=== PATIENT | female | born 2000 | race Caucasian/White ===

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

== ENCOUNTER → 2022-01-27 12:37 | Outpatient (BNVA) | payer OTHER, BC, SELFPAY | PROVIDERS: PCP Nurse Practitioner Family; Visit Provider Nurse Practitioner Women's Health | DX: Z72.51 High risk heterosexual behavior (principal) | CPT/HCPCS: 84702; 86592; 86803; 87340; 87491; 87591; 87661; 87806 ==

== ENCOUNTER 2025-01-16 23:23 | Emergency (ER) | payer OTHER, SELFPAY ==
--- OUTSIDE RECORDS SUMMARY | 2023-09-30 12:23 | XMS_ITS | Continuity of Care Document ---
Author Organization [facility] Address [address] [place] [address] Phone Care Team Providers Care Rigging Helper Name Role Phone Aurora Franco PT Unavailable Unavailable Procedures Procedure Date Therapeutic Activities Neuromuscular Re-Ed Therapeutic Exercise Therapeutic Activities Therapeutic Exercise Neuromuscular Re-Ed Therapeutic Activities Neuromuscular Re-Ed Therapeutic Exercise Manual Therapy Therapeutic Activities Neuromuscular Re-Ed Therapeutic Exercise Hot or Cold Pack PT Evaluation Moderate Complexity Therapeutic Activities Therapeutic Exercise Advance Directives Directive Yes / No Effective Date File Name No Information Encounters Encounter Description Practice Location Reason(s) For Visit Diagnoses Date Provider Providers Copied on Encounter [facility] [address], [place], [place], [id number], tel:[phone] [facility] No Information Salvador Simon. . Referring Provider: Jasmyne Underwood W [facility] [address], [place], [address]. tel:[phone] [facility] [address], [place], [place], [id number], tel:[phone] [facility] No Information Desilets [place]. . Referring Provider: Vern Fatima [address] [address], [place], [address]. tel:[phone] [place] [address], [id number], tel:[phone] [facility] No Information Pelea Aurora. . Referring Provider: Vern Fatima, [address] [address], [place], [place], [facility]. tel:[phone] [place] [address], [id number], tel:[phone] [facility] No Information Snow Paul. . Referring Provider: Vern Fatima [address] [address], [place], [place], [facility]. tel:[phone], [id number], tel:[phone] [facility] No Information Pelea Aurora. . Referring Provider: Vern Fatima [address] [address], [place], [facility]. tel:[phone], [id number], tel:[phone] [facility] No Information Pelea Aurora. . Referring Provider: Vern Fatima [address] [address], [place], [place], [facility]. tel:[phone] Family History Family Member Type Diagnosis Age At Onset No Information Payers Payer name Insurance type Covered green party ID Authormilaa tisoheila(s) [facility] [id number] Social History Type Description Quantity Date Captured [...]
--- OUTSIDE RECORDS SUMMARY | 2023-12-16 09:00 | XMS_ITS | Continuity of Care Document ---
Author Organization [facility] Address [address] [place] [address] Phone Care Team Providers Care License Registration Examiner Name Role Phone Casey Parson Unavailable Unavailable Allergies, Adverse Reactions, Alerts Substance Reaction Status Criticality No Known Allergies Active No Inform ation Medications Medication Instructions Dosage Effective Dates (start - stop) Status Comments hydrocodone 5 mg-acetaminophen 325 mg tablet take 1 tablet by oral route every 6 hours as needed for pain 1.00 tablet - Active fluoxetine 10 mg capsule take 2 capsule by oral route every day 20 MG - Active NuvaRing 0.12 mg-0.015 mg/24 hr vaginal insert 1 vaginal ring by vaginal route every month leave in place for 3 weeks, remove for 1 week 1.00 vaginal ring - Active Problems Condition Type Effective Dates (start - stop) Clini meredith Status Comments No Known Problems Procedures Procedure Date OFFICE/OUTPATIENT VISIT, EST OFFICE/OUTPATIENT VISIT, EST Inj Methylprednisolone 1 mg DRAIN/INJ JOINT/BURSA W/US Postop Follow-Up Visit Inc [facility] Knee arthroscopy/meniscectomy, medial OR lat Knee arthroscopy/meniscectomy, medial OR lat OFFICE/OUTPATIENT VISIT, EST OFFICE/OUTPATIENT VISIT, NEW Xray Knee Dimitri And Lateral Views X-ray exam, both knees, standing 2023 Advance Directives Directive Yes / No Effective Date File Name No Information Encounters Encounter Description Practice Location Reason(s) For Visit Diagnoses Date Provider Providers Copied on Encounter OFFICE/OUTPAT IENT VISIT, [facility] [address], [place], [place], [id number], [place] tel:[phone] Bone And Joint Follow Up of right knee (chief complaint) Complex tear of lateral meniscus of right knee as current injury, subsequent encounter 4 Ryan Peña. [address], [address], [place], [place], [id number] , [place]. tel:[phone] Referring Provider: Vern Mason, [address], [place], [address]. tel:[phone] OFFICE/OUTPAT IENT VISIT, [facility] [address], [place], [place], [id number], [place] tel:[phone] Bone And Joint Follow Up of R knee (chief complaint) Complex tear of lateral meniscus of right knee as current injury, subsequent encounter 4 Ryan Peña. [address], [address], [place], [place], [address] , [place]. tel:[phone] Referring Provider: Casey Yost, [address], [place], [address] . tel:[phone] [facility] [address], [place], [place], [id number], [place] tel:[phone] Bone And Joint R knee (chief complaint) Status post arthroscopic knee surgeryComplex tear of lateral meniscus of right knee as current injury, subsequent encounterKnee joint cyst, right 4 Ryan Peña. [address], [address], [place], [place], [address] , [place]. tel:[phone] Referring Provider: Vern Mason, [address], [place], [address]. tel:[phone] [facility] [address], [place], [place], [id number], [place] tel:[phone] Bone And Joint Follow Up of PO (chief complaint) Knee joint cyst, rightOther tear of lateral meniscus, current injury, right knee, initial encounter 4 Ryan Peña. [address], [address], [place], [place], [address] , [place]. [phone] Referring Provider: Vern Mason, [address], [place], [address]. tel:[phone] [facility] [address], [place], [place], [id number], [place] tel:[phone] [facility] Complex tear of lat mensc, current injury, right knee, initOther specified joint disorders, right knee 4 Ryan Peña. [address], [address], [place], [place], [address] , [place]. [phone] Referring Provider: Vern Mason, [address], [place], [address]. tel:[phone] [facility] [address], [place], [place], [id number], [place] tel:[phone] [facility] Complex tear of lat mensc, current injury, right knee, init 4 Akua Porras. [address], [address], [place], [address], [place]. [phone] Referring Provider: Vern Mason, [address], [place], [address]. tel:[phone] [facility] [address], [place], [place], [id number], [place] tel:[phone] Bone And Joint No Information 4 Akua Porras. [address], [address], [place], [address], [place]. tel:[phone] OFFICE/OUTPAT IENT VISIT, [facility] [address], [place], [place], [address], [place] tel:[phone] Bone And Joint Follow Up of MRI R knee (chief complaint) Knee joint cyst, right Apr-3 4 Akua Porras. [address], [address], [place], [address], [place]. tel:[phone] Referring Provider: Vern Mason, [address] [place] [address] [address], [place], [address]. tel:[phone] OFFICE/OUTPAT IENT VISIT, [facility] [address], [place], [place], [id number], [place] tel:[phone] Bone And Joint right knee (chief complaint) Other tear of lateral meniscus, current injury, right knee, initial encounter Jun- 4 Akua Porras. [address], [address], [place], [address], [place]. tel:[phone] Referring Provider: Vern Mason, [address] [place] [address] [address], [place], [address]. tel:[phone] Family History Family Member Type Diagnosis Age At Onset No Information Payers Payer name Insurance type Covered libertarian ID Authorbuck page(s) [facility] [id number] CI [id number] Social History Type Description Quantity Date Captured [...] use screening . Due on due Goal Influenza vaccine. Due on due Goal HPV (). Due on due Goal Hepatitis C screening. [...] due Goal PAP. Due on due Goal Depression screening. Due on due Goal Colonoscopy. Due on due Goal Td vaccine. Due on due Goal FOBT. Due on due Goal CT-Colonography. Due on due Goal Hepatitis C screening. Due o n due Goal HPV (1st). Due on due Goal FIT-DNA. Due on due Goal FIT. Due on due Goal Dilated Eye Exam. Due on Sep due Goal Sigmoidoscopy. Due on due Goal PAP. Due on due Goal Unhealthy drug use screening . Due on due Goal Tdap. Due on due Goal Influenza vaccine. Due on due Goal FIT. Due on [...] due Goal FIT-DNA. Due on due Goal Hepatitis C screening. Due o n due Goal Fluoride varnish application . Due on due Goal Td vaccine. Due on due Goal Tdap. Due on due Goal FOBT. Due on due Goal Dilated Eye Exam. [...] Date Complaint History Of Prese nt Illness Comments: Pt pre sents to clinic today for a 4 week follow up of a right knee cortisone injection. Patient says the injection helped her out quite a bit. She still has some mild lateral knee pain, however. Follow Up of right knee Follow Up of R knee Comments: Pt [...] denies any locking, catching or giving way. Comments: 6 week f/u R knee arthroscopy, partial lateral meniscectomy, debridement ACL cyst. Pt says she was doing well, however, started PT and started increasing her symptoms, pain is primarily along lateral joint line and posterior knee. 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 R knee Comments: 1 week f/u R knee arthroscopy with partial lateral meniscectomy and debridement ACL cyst. Doing well. 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 Follow Up of PO Follow Up of MRI R knee Comments: Pt com es in for follow up post MRI R knee. She continues to have knee pain, difficulty with long standing running. 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 She initially injured herself 2 years ago while playing softball and tripped over first base. She was treated with NSAIDS and PT and subsequently with a corticosteroid injection. They talked about an MRI but never did. She continued to have pain , popping, difficulty working out. Functional Status Date Functional Assessmen t No [...] MD Related to Knee joint cyst, right Imaging or Surgery scheduled Rel ated to Knee joint cyst, right Risk/benefits of lady atment plan discussed with patient Related to Knee joint cyst, right Patient will follow up after surgery as post op check Related to Knee joint cyst, right Probable [...]
[2025-01-16 23:26] VITALS: BP 136/100; PULSE 111; RESP 20; TEMP 36.7; O2SAT 94; BMI 21.9
--- NOTE | 2025-01-16 23:30 | ECG_ITS ---
[employer] Test Date: 2025-01-16 Pat Name: Sophia Felix Department: Room: Gender: Female Qa Tester: : 2000 Requested By: Yee Blancas Order Number: [id number] Reading MD: Measurements Intervals [place] Rate: 110 P: 70 WI: 146 QRS: 73 QRSD: 95 T: -14 QT: 340 QTc: 460 Interpretive Statements SINUS TACHYCARDIA LEFT ATRIAL ENLARGEMENT [-0.15mV P-WAVE IN V1/V2] POSSIBLE RIGHT VENTRICULAR CONDUCTION DELAY [RSR (QR) IN V1/V2] NONSPECIFIC ST & T-WAVE ABNORMALITY No previous ECG available for comparison [id number]
[2025-01-16 23:48] VITALS: BP 113/65; PULSE 100; O2SAT 94
--- NOTE | 2025-01-16 23:58 | ED_ITS ---
HPI - Anxiety General: Chief Complaint: Anxiety Stated Complaint: having a panic attack Time Seen by Provider: 01/16/25 23:45 Source: patient Mode of arrival: ambulatory Limitations: no limitations History of Present Illness: Patient is a 24-year-old female with a longstanding history of anxiety and takes fluoxetine 20 mg daily for this year with a complaint of a panic attack. Patient states she has been having daily panic attacks over the past week. She states she is having a significant life stressor as her /significant other is in [place] in [place]. Patient states her panic attack was so bad this evening that she wanted to come to the emergency department to get medications to try to help. She states she did schedule an appointment with her primary care provider for next week for medication adjustment better help with her anxiety. MD complaint: anxiety Onset (ago): week(s) Symptoms: extremity numbness/tingling and sense of impending doom Severity: severe Quality: intermittent Place: home History of similar episodes: Yes Provoking factors: emotional stress Relieving factors: nothing Exacerbating factors: nothing Associated symptoms: Deny chest pain, chills, fever(s), headache(s), malaise or syncope Related Data Home Medications ?Medication ?Instructions ?Recorded ?Confirmed budesonide 32 mcg/actuation nasal mcg intranasal 12/0312/03/24 spray,aerosol fluoxetine 10 mg capsule mg PO 12/03/24 12/03/24 segesterone acet 0.15 mg-ethinyl vag ring vaginal 11/2012/03/24 estradiol 0.013 mg/24 hr vaginal ring (Annovera) Previous Rx's ?Medication ?Instructions ?Recorded doxycycline hyclate 100 mg tablet 100 mg PO BID 21 day s #42 tabs 12/03/24 lorazepam 1 mg tablet (Ativan) 1 mg PO Q12H PRN anxiet y #8 tabs 01/17/25 Allergies Allergy/AdvReac Type Severity Reaction Status Date / Time sulfamethoxazole (From Allergy Severe Unknown Verified 01/16/25 23:37 Bactrim) topiramate (From Topamax) Allergy Severe Unknown Verified 01/16/25 23:37 trimethoprim (From Bactrim) Allergy Severe Unknown Verified 01/16/25 23:37 Review of Systems Const: Denies: fever(s), chills, body aches, fatigue or malaise Eyes: Denies: change in vision or blurry vision Card: Denies: chest pain or syncope Resp: Denies: dyspnea GI: Denies: abdominal pain Neuro: Denies: headache(s) or dizziness Psych: Reports: anxiety; Denies: depression, hopelessness, paranoia, visual hallucinations, auditory hallucinations, suicidal ideation or homicidal ideation PFSH ED PFSH: Medical History No pertinent past medical history neghx:htn,dm,thyroid,dvt/pe PCP: Earline CLIFFORD Anxiety Asthma Surgical History H/O oral surgery Family History Grandmother Family history of thyroid problem Maternal Denies family history of Colon cancer Ovarian cancer Diabetes Heart disease Hyperlipidemia Breast cancer Hypertension Uterine cancer Stroke Social History Smoking and tobacco/nicotine status: never used tobacco/nicotine Female Reproductive History: Date of last menstrual period: 01/10/25 Physical Exam Const: COMMON NORMALS: patient oriented x3, no limitations, alert and well nourished GENERAL APPEARANCE: cooperative and anxious ORIENTATION/ CONSCIOUSNESS: Yes awake, Yes oriented to person, Yes oriented to place and Yes oriented to time Eye: GENERAL EYE: appearance normal, both eyes and all related structures Resp: COMMON NORMALS: normal respiratory effort and clear to auscultation bilaterally AUSCULTATION: clear to auscultation bilaterally Cardio: COMMON NORMALS: regular rate and regular rhythm RATE: regular rate RHYTHM: regular rhythm Extremity: GENERAL: Yes normal exam except as noted Neuro: STEPHON COMA SCALE: document GCS findings Stephon coma scale eye opening: Spontaneous [place] coma scale verbal response: Orientated [place] coma scale motor response: Obey commands [place] coma scale total score: 15 COMMON NORMALS: patient oriented x3, moves all extremities, no focal motor deficits, no sensory deficits noted and gait normal SENSORIUM/ORIENTATION: Yes alert, Yes oriented to person, Yes oriented to place and Yes oriented to time SPEECH: speech normal Course Vital Signs: Vital signs: Vital Signs Temperature 98.1 F 01/16/25 23:26 Pulse Rate 100 01/16/25 23:48 Respiratory Rate 20 H 01/16/25 23:26 Blood Pressure 113/65 01/16/25 23:48 Pulse Oximetry 94 01/16/25 23:48 Oxygen Delivery Me thod Room Air 01/16/25 23:48 MDM - Anxiety Medical Decision Making Patient here with complaints of an acute panic attack. She has an appointment scheduled for primary care next Wednesday to adjust medications so she can get a better hold on her anxiety. She is not suicidal or homicidal. Patient was given IM Ativan here. On re-assessment she feels much better and would like to go home. She states she is traveling back to [place] this and is requesting something she can take as needed if she has severe panic attacks while there. Differential Diagnosis Likely hyperventilation, panic disorder and acute anxiety Medical Records I reviewed the patient's medical records. No radiology studies performed this visit Discharge Plan Discharge Patient Disposition: Home Clinical Impression: Anxiety Condition: Stable Prescriptions: New lorazepam [Ativan] 1 mg tablet 1 mg PO Q12H PRN (Reason: anxiety) Qty: 8 0RF No Action lidocaine-epinephrine (PF) 2 %-1:200,000 solution 3 ml Infiltration ONCE Qty: 1 0RF povidone-iodine [Betadine Swabsticks] 10 % swab 1 applic topical ONCE Qty: 150 0RF fluoxetine 10 mg capsule PO budesonide 32 mcg/actuation aerosol intranasal [place]overa 0.15-0.013 mg/24 hour ring vaginal doxycycline hyclate 100 mg tablet 100 mg PO BID 21 Days Qty: 42 0RF Discharge Orders: Discharge ED (Routine); Ordered 01/17/25 Ordered By: Yee Blancas Referrals: Anjelica Keys FNP [Primary Care Provider, Family Practice] Patient Instructions: Generalized Anxiety Disorder (ED), Anxiety (ED), Panic Attack (ED), Patient Portal & [facility] Instructions Print Language: Tuvaluan Coding Level of Care Code ED Data Report Analyst for Alyssia Mendez
[2025-01-17] MEDS: LORazepam 2 mg/mL INJ 1 mL 1 MG IM (00:14)
== END 2025-01-17 00:53 | disposition home or self-care (01) ==
PROVIDERS: Emergency Provider Physician Assistant; PCP Nurse Practitioner Family
DX: F41.9 Anxiety disorder, unspecified (principal)
CPT/HCPCS: 93005; 96372; 99284; J2060

== ENCOUNTER 2025-01-27 00:39 | Emergency (ER) | payer OTHER, SELFPAY ==
--- OUTSIDE RECORDS SUMMARY | 2023-09-30 11:23 | XMS_ITS | Continuity of Care Document ---
Author Organization [facility] Address [address] [place] [address] Phone Care Team Providers Care Category Consultant Name Role Phone Auroar Franco PT Unavailable Unavailable Procedures Procedure Date Therapeutic Activities Neuromuscular Re-Ed Therapeutic Exercise Therapeutic Activities Neuromuscular Re-Ed Therapeutic Exercise Therapeutic Activities Neuromuscular Re-Ed Therapeutic Exercise Manual Therapy Therapeutic Activities Neuromuscular Re-Ed Therapeutic Exercise Hot or Cold Pack PT Evaluation Moderate Complexity Therapeutic Activities Therapeutic Exercise Advance Directives Directive Yes / No Effective Date File Name No Information Encounters Encounter Description Practice Location Reason(s) For Visit Diagnoses Date Provider Providers Copied on Encounter [facility] [address], [place], [place], [id number], tel:[phone] [facility] No Information Salvador Simon. . Referring Provider: Jasmyne Underwood W [facility] [address], [place], [address]. tel:[phone] [facility] [address], [place], [place], [id number], tel:[phone] [facility] No Information Desilets Savannah. . Referring Provider: Vern Fatima [address] [address], [place], [address]. tel:[phone] [place] [address], [id number], tel:[phone] [facility] No Information Pelea Aurora. . Referring Provider: Vern Fatima, [address] [address], [place], [place], [facility]. tel:[phone] [place] [address], [id number], tel:[phone] [facility] No Information Snow Paul. . Referring Provider: Vern Fatima [address] [address], [place], [facility]. tel:[phone], [id number], tel:[phone] [facility] No Information Pelea Aurora. . Referring Provider: Vern Fatima [address] [address], [place], [facility]. tel:[phone], [id number], tel:[phone] [facility] No Information Pelea Aurora. . Referring Provider: Vern Fatima [address] [address], [place], [place], [facility]. tel:[phone] Family History Family Member Type Diagnosis Age At Onset No Information Payers Payer name Insurance type Covered libertarian ID Authormilaa tisoheila(s) [facility] [id number] Social History Type Description Quantity Date Captured Comments Sex Female Smoking Status No Information Chief Complaint And Reason For Visit No Information Reason For Referral Reason For Referral No Information History Of Present Illness Encounter Date Complaint History Of Prese nt Illness No Information Functional Status Date Functional Assessmen t No Information Instructions Date Instruction Additional Infor mation No Information Assessments Type Assessment Date No Information Patient Care Teams Name Effective Dates (start - stop) Status Members No Information
--- OUTSIDE RECORDS SUMMARY | 2023-12-16 08:00 | XMS_ITS | Continuity of Care Document ---
Author Organization [facility] Address [address] [place] [address] Phone Care Team Providers Care Gluing Machine Operator Name Role Phone Casey Parson Unavailable Unavailable Allergies, Adverse Reactions, Alerts Substance Reaction Status Criticality No Known Allergies Active No Inform ation Medications Medication Instructions Dosage Effective Dates (start - stop) Status Comments hydrocodone 5 mg-acetaminophen 325 mg tablet take 1 tablet by oral route every 6 hours as needed for pain 1.00 tablet - Active NuvaRing 0.12 mg-0.015 mg/24 hr vaginal insert 1 vaginal ring by vaginal route every month leave in place for 3 weeks, remove for 1 week 1.00 vaginal ring - Active fluoxetine 10 mg capsule take 2 capsule by oral route every day 20 MG - Active Problems Condition Type Effective Dates (start - stop) Clini meredith Status Comments No Known Problems Procedures Procedure Date OFFICE/OUTPATIENT VISIT, EST OFFICE/OUTPATIENT VISIT, EST Inj Methylprednisolone 1 mg DRAIN/INJ JOINT/BURSA W/US Postop Follow-[facility] Follow[facility] Knee arthroscopy/meniscectomy, medial OR lat Knee arthroscopy/meniscectomy, medial OR lat OFFICE/OUTPATIENT VISIT, EST OFFICE/OUTPATIENT VISIT, NEW Xray Knee Dimitri And Lateral Views X-ray exam, both knees, standing 2023 Advance Directives Directive Yes / No Effective Date File Name No Information Encounters Encounter Description Practice Location Reason(s) For Visit Diagnoses Date Provider Providers Copied on Encounter OFFICE/OUTPAT IENT VISIT, [facility] [address], [place], [place], [id number], [place] tel:[phone] [facility] Follow Up of right knee (chief complaint) Complex tear of lateral meniscus of right knee as current injury, subsequent encounter 4 Ryan Peña. [address], [address], [place], [place], [id number] , [place]. [phone] Referring Provider: Vern Mason, [address], [place], [address]. tel:[phone] OFFICE/OUTPAT IENT VISIT, [facility] [address], [place], [place], [id number], [place] tel:[phone] [facility] Follow Up of R knee (chief complaint) Complex tear of lateral meniscus of right knee as current injury, subsequent encounter 4 Ryan Peña. [address], [address], [place], [place], [id number] , [place]. tel:[phone] Referring Provider: Casey Yost, [address], [place], [address] . tel:[phone] [facility] [address], [place], [place], [id number], [place] tel:[phone] [facility] R knee (chief complaint) Status post arthroscopic knee surgeryComplex tear of lateral meniscus of right knee as current injury, subsequent encounterKnee joint cyst, right 4 Ryan Peña. [address], [address], [place], [place], [id number] , [place]. tel:[phone] Referring Provider: Vern Mason, [address] [facility] [address], [place], [address]. tel:[phone] [facility] [address], [place], [place], [id number], [place] tel:[phone] [facility] Follow Up of PO (chief complaint) Knee joint cyst, rightOther tear of lateral meniscus, current injury, right knee, initial encounter 4 Ryan Peña. [address], [address], [place], [place], [id number] , [place]. [phone] Referring Provider: Vern Mason, [address], [place], [address]. tel:[phone] [facility] [address], [place], [place], [id number], [place] tel:[phone] [facility] Complex tear of lat mensc, current injury, right knee, initOther specified joint disorders, right knee 4 Ryan Peña. [address], [address], [place], [place], [id number] , [place]. [phone] Referring Provider: Vern Mason, [address], [place], [address]. tel:[phone] [facility] [address], [place], [place], [id number], [place] tel:[phone] [facility] Complex tear of lat mensc, current injury, right knee, init 4 Akua Porras. [address], [address], [place], [address], [place]. [phone] Referring Provider: Vern Mason, [address], [place], [address]. tel:[phone] [facility] [address], [place], [place], [id number], [place] tel:[phone] [facility] No Information 4 Akua Porras. [address], [address], [place], [address], [place]. tel:[phone] OFFICE/OUTPAT IENT VISIT, [facility] [address], [place], [place], [id number], [place] tel:[phone] [facility] Follow Up of MRI R knee (chief complaint) Knee joint cyst, right Apr-3 4 Akua Porras. [address] [facility], [place], [address], [place]. tel:[phone] Referring Provider: Vern Mason, [address] [place] [address] [address], [place], [address]. tel:[phone] OFFICE/OUTPAT IENT VISIT, [facility] [address], [place], [place], [id number], [place] tel:[phone] [facility] right knee (chief complaint) Other tear of lateral meniscus, current injury, right knee, initial encounter Jun- 4 Akua Porras. [address] [facility], [place], [address], [place]. tel:[phone] Referring Provider: Vern Mason, [address] [place] [address] [address], [place], [address]. tel:[phone] Family History Family Member Type Diagnosis Age At Onset No Information Payers Payer name Insurance type Covered republican ID Authorbuck page(s) [facility] [id number] [place] [id number] Social History Type Description Quantity Date Captured Comments Alcohol Use Details Unknown Caffeine Use Details Tobacco Use Status Current non-smoker Smoking Status Never smoker Non-Smoking Tobacco Use Details : No Details Available : No Details Available Sex Female Vital Signs Date / Time: Height Weight BMI Pulse Rate Blood Pressure Temperature Respiratory Rate Body Surface Area Head Circumference Head Circ. Percentile Wt./Chucho. Percentile BMI percentile Pulse Ox Inhaled Ox 2:03 PM 66.00 in 61.235 kg (135.00 lbs) 21.7 9 kg/m eter (2) 96.00 F Chief Complaint And Reason For Visit From encounter dated '12/16/2023 14:00'. Follow Up of right knee (chief complaint) Reason For Referral Reason For Referral No Information Plan Of Treatment Date Type Action Status Goal FIT. Due on due Goal Sigmoidoscopy. Due on due Goal PAP. Due on due Goal Hepatitis C screening. Due o n due Goal Td vaccine. Due on due Goal Tdap. Due on due Goal Dilated Eye Exam. Due on Nov due Goal HPV (). Due on due Goal Depression screening. Due on due Goal FIT-DNA. Due on due Goal FOBT. Due on due Goal Colonoscopy. Due on due Goal Influenza vaccine. Due on due Goal CT-Colonography. Due on due Goal Unhealthy drug use screening . Due on due Goal Unhealthy drug use screening . Due on due Goal Sigmoidoscopy. Due on due Goal Depression screening. Due on due Goal FIT. Due on due Goal FOBT. Due on due Goal FIT-DNA. Due on due Goal Td vaccine. Due on due Goal CT-Colonography. Due on due Goal Tdap. Due on due Goal PAP. Due on due Goal Influenza vaccine. Due on due Goal HPV (1st). Due on due Goal Hepatitis C screening. Due o n due Goal Dilated Eye Exam. Due on Oct due Goal Colonoscopy. Due on due Goal Sigmoidoscopy. Due on due Goal PAP. Due on due Goal Unhealthy drug use screening . Due on due Goal Tdap. Due on due Goal Influenza vaccine. Due on due Goal Depression screening. Due on due Goal Colonoscopy. Due on due Goal Td vaccine. Due on due Goal FOBT. Due on due Goal CT-Colonography. Due on due Goal Hepatitis C screening. Due o n due Goal HPV (1st). Due on due Goal FIT-DNA. Due on due Goal FIT. Due on due Goal Dilated Eye Exam. Due on Sep due Goal FIT. Due on due Goal HPV (1st). Due on due Goal Fluoride varnish application . Due on due Goal Colonoscopy. Due on due Goal FOBT. Due on due Goal CT-Colonography. Due on due Goal Tdap. Due on due Goal Hepatitis C screening. Due o n due Goal Unhealthy drug use screening . Due on due Goal Td vaccine. Due on due Goal Sigmoidoscopy. Due on due Goal Dilated Eye Exam. Due on Aug due Goal Influenza vaccine. Due on due Goal Depression screening. Due on due Goal FIT-DNA. Due on due Goal Tdap. Due on due Goal FOBT. Due on due Goal Hepatitis C screening. Due o n due Goal Fluoride varnish application . Due on due Goal Td vaccine. Due on due Goal Dilated Eye Exam. Due on Jun due Goal Influenza vaccine. Due on due Goal HPV (1st). Due on due Goal FIT. Due on due Goal Depression screening. Due on due Goal CT-Colonography. Due on due Goal Colonoscopy. Due on due Goal Unhealthy drug use screening . Due on due Goal FIT-DNA. Due on due Goal Sigmoidoscopy. Due on due Goal Fluoride varnish application . Due on due Goal FIT. Due on due Goal CT-Colonography. Due on due Goal FOBT. Due on due Goal Colonoscopy. Due on due Goal Tdap. Due on due Goal Sigmoidoscopy. Due on due Goal Influenza vaccine. Due on Ap due Goal Depression screening. Due on due Goal FIT-DNA. Due on due Goal HPV (1st). Due on due Goal Dilated Eye Exam. Due on Jun due Goal Hepatitis C screening. Due o n due Goal Unhealthy drug use screening . Due on due Goal Td vaccine. Due on due History Of Present Illness Encounter Date Complaint History Of Prese nt Illness Follow Up of right knee Comments: Pt pre sents to clinic today for a 4 week follow up of a right knee cortisone injection. Patient says the injection helped her out quite a bit. She still has some mild lateral knee pain, however. Follow Up of R knee Comments: Pt pre sents to clinic today for a 3 month follow up of her right knee arthroscopy, partial lateral meniscectomy, debridement of ACL cyst. Patient is still suffering from lateral joint posterior knee pain. She says it continues to affect her with standing for long periods of time or with walking. Patient denies any new injuries to the knee, denies any locking, catching or giving way. R knee Comments: 6 week f/u R knee arthroscopy, partial lateral meniscectomy, debridement ACL cyst. Pt says she was doing well, however, started PT and started increasing her symptoms, pain is primarily along lateral joint line and posterior knee. 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 Follow Up of PO Comments: 1 week f/u R knee arthroscopy with partial lateral meniscectomy and debridement ACL cyst. Doing well. 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 Comments: Pt com es in for follow up post MRI R knee. She continues to have knee pain, difficulty with long standing running. 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 She initially injured herself 2 years ago while playing softball and tripped over first base. She was treated with NSAIDS and PT and subsequently with a corticosteroid injection. They talked about an MRI but never did. She continued to have pain , popping, difficulty working out. right knee Functional Status Date Functional Assessmen t No Information Instructions Date Instruction Additional Infor reynaldo 4 weeks s/p left kne e steroid injection. We will see pt back as needed. All questions have been answered.I, Chan Valdez, am transcribing based on the dictated information given by YARELY Robles Related to Complex tear of lateral meniscus of right knee as current injury, subsequent encounter Patient will follow up as needed . Related to Complex tear of lateral meniscus of right knee as current injury, subsequent encounter Risk/benefits of lady atment plan discussed with patient Related to Complex tear of lateral meniscus of right knee as current injury, subsequent encounter 3 months s/p right k nee arthroscopy, partial lateral meniscectomy, debridement of ACL cyst.Given pt is over 3 months out and is still having some persistent pain, I have recommended a one-time Depo-Medrol injection.Procedure note: the right knee was prepped, then using direct ultrasound visualization 5cc's of 4:1 Lidocaine Depo-Medrol was injected. The patella and quadriceps tendons, femur and joint space were identified. Image documentation was performed. Patient tolerated procedure well.Right knee DJD.We will see pt back in clinic in 4 weeks. All questions have been answered.Chan Adams am transcribing based on the dictated information given by YARELY Robles Related to Complex tear of lateral meniscus of right knee as current injury, subsequent encounter Follow up in 4 weeks. Related to Complex tear of lateral meniscus of right knee as current injury, subsequent encounter Risk/benefits of lady atment plan discussed with patient Related to Complex tear of lateral meniscus of right knee as current injury, subsequent encounter DC PT at this time. Recommend course of anti inflammatories for pain and inflammation. F/u in 6 weeks for 3 month f/u. If she still is having trouble then, we could consider a steroid injection at that point. All questions have been answered. La Adams am transcribing based on the information given to me by YARELY Robles. Related to Status post arthroscopic knee surgery Patient will follow up in 6 week s. Related to Status post arthroscopic knee surgery Risks/benefits of tr eatment plan discussed with patient Related to Status post arthroscopic knee surgery Start PT. F/u in 5 w eeks. All questions have been answered. La Adams am transcribing based on the information given to me by YARELY Robles. Related to Knee joint cyst, right Risk/benefits of lady atment plan discussed with patient Related to Knee joint cyst, right Follow up in 5 weeks. Related to Knee joint cyst, right I discussed with the patient the options of continued conservative management versus arthroscopy with excision of the cyst. AT this point she desires to proceed with arthroscopy. Risks and benefits discussed and pt desires to proceed. We will schedule pt for it. Janine Adams am transcribing based on the information dictated by Dr. Vern Fatima MD Related to Knee joint cyst, right Patient will follow up after surgery as post op check Related to Knee joint cyst, right Imaging or Surgery scheduled Rel ated to Knee joint cyst, right Risk/benefits of lady atment plan discussed with patient Related to Knee joint cyst, right Probable lateral men iscus tear. Possible chondral injury. Given the fact this has been going for 2 years and she has had persistent pain despite NSAIDS corticosteroid injection and PT I recommend MRI and RTC after that. I, Janine Whittaker, am transcribing based on the information dictated by Dr. Vern Fatima MD Related to Other tear of lateral meniscus, current injury, right knee, initial encounter Patient will follow up after ebenezer ging. Related to Other tear of lateral meniscus, current injury, right knee, initial encounter Imaging or Surgery scheduled Rel ated to Other tear of lateral meniscus, current injury, right knee, initial encounter Risk/benefits of lady atment plan discussed with patient Related to Other tear of lateral meniscus, current injury, right knee, initial encounter Assessments Type Assessment Date assessment Complex tear of late ral meniscus of right knee as current injury, subsequent encounter Mental Status Date Cognitive Assessment Normal Orientation Patient Care Teams Name Effective Dates (start - stop) Status Members No Information
[2025-01-27 00:52] VITALS: BP 143/77; PULSE 115; RESP 18; TEMP 36.6; O2SAT 99; BMI 22.7
[2025-01-27 01:00] VITALS: BP 117/78; PULSE 115; RESP 18; O2SAT 98
--- NOTE | 2025-01-27 01:46 | W.ED.ANXIETY ---
HPI - Anxiety General: Chief Complaint: Anxiety Stated Complaint: feels very anxious, heart racing Time Seen by Provider: 01/27/25 00:58 History of Present Illness: Patient is a 24-year-old female who presents to the emergency department with an acute panic attack. She reports experiencing panic attacks recently with symptoms including uncontrollable shaking, difficulty speaking, tachycardia, and inability to fall asleep due to feeling 'wired.' The patient states that tonight's episode is 'extra bad' compared to her usual attacks. She reports taking hydroxyzine for the current episode without relief. Patient has a history of recent ED visit last week for similar symptoms, during which she received Ativan with good effect, including ability to sleep afterward. She was prescribed lorazepam following that visit, which she tried once in the morning but reports it made her feel 'unwell' Patient is currently taking fluoxetine daily. Related Data Home Medications ?Medication ?Instructions ?Recorded ?Confirmed budesonide 32 mcg/actuation nasal mcg intranasal 12/03/24 12/03/24 spray,aerosol fluoxetine 10 mg capsule mg PO 12/03/24 12/03/24 segesterone acet 0.15 mg-ethinyl vag ring vaginal 12/03/24 12/03/24 estradiol 0.013 mg/24 hr vaginal ring (Annovera) Previous Rx's ?Medication ?Instructions ?Recorded doxycycline hyclate 100 mg tablet 100 mg PO BID 21 days #42 tabs 12/03/24 lorazepam 1 mg tablet (Ativan) 1 mg PO Q12H PRN anxiety #8 tabs 01/17/25 Allergies Allergy/AdvReac Type Severity Reaction Status Date / Time sulfamethoxazole (From Allergy Severe Unknown Verified 01/16/25 23:37 Bactrim) topiramate (From Topamax) Allergy Severe Unknown Verified 01/16/25 23:37 trimethoprim (From Bactrim) Allergy Severe Unknown Verified 01/16/25 23:37 Review of Systems Narrative: Constitutional: Denies fever, chills Cardiovascular: Reports tachycardia during panic episodes Respiratory: Reports difficulty breathing during panic attacks Neurological: Reports uncontrollable shaking during panic attacks Psychiatric: Reports anxiety, panic attacks, difficulty sleeping PFSH ED PFSH: Medical History No pertinent past medical history neghx:htn,dm,thyroid,dvt/pe PCP: Earline Keys [facility] Anxiety Asthma Surgical History H/O oral surgery Family History Grandmother Family history of thyroid problem Maternal Denies family history of Colon cancer Ovarian cancer Diabetes Heart disease Hyperlipidemia Breast cancer Hypertension Uterine cancer Stroke Social History Smoking and tobacco/nicotine status: never used tobacco/nicotine Physical Exam Const: GENERAL APPEARANCE: cooperative and anxious; not ill appearing and not frail appearing HENMT: COMMON NORMALS: normocephalic, atraumatic and Normal external nose present HEAD & SCALP: normocephalic and atraumatic FACE & SINUS: normal facial exam and face symmetric NOSE: Normal external nose present Eye: COMMON NORMALS: Equal, round and reactive pupils present and EOMs intact bilaterally PUPIL: Yes Equal, round and reactive pupils present Neck/C-Spine: GENERAL: Yes trachea midline Chest: CHEST: Yes Symmetrical chest wall rise Resp: COMMON NORMALS: normal respiratory effort, No retractions, No use of accessory muscles and clear to auscultation bilaterally AUSCULTATION: clear to auscultation bilaterally Cardio: COMMON NORMALS: regular rate and regular rhythm RATE: regular rate RHYTHM: regular rhythm Extremity: COMMON NORMALS: no pedal edema Neuro: STEPHON COMA SCALE: document GCS findings [place] coma scale eye opening: Spontaneous [place] coma scale verbal response: Orientated [place] coma scale motor response: Obey commands [place] coma scale total score: 15 SENSORY EXAM: Yes extremities (intact) Psych: COMMON NORMALS: speech normal SPEECH: Yes normal speech Skin: COMMON NORMALS: no rashes or lesions noted GENERAL SKIN EXAM: no rashes or lesions noted Course Vital Signs: Vital signs: Vital Signs Temperature 98 F 01/27/25 00:52 Pulse Rate 115 H 01/27/25 01:00 Respiratory Rate 18 01/27/25 01:00 Blood Pressure 117/78 01/27/25 01:00 Pulse Oximetry 98 01/27/25 01:00 Oxygen Delivery Me thod Room Air 01/27/25 01:00 MDM - Anxiety Medical Decision Making Patient is quite anxious on exam. She was offered a injection of Ativan, she had this last week with good relief. She has lorazepam at home, which she could take at home at bedtime instead of in the morning. She was counseled on this. She has hydroxyzine which she can take during the day as well. She was counseled on this as well. Ultimately, she decided she wanted to be discharged prior to administration of her Ativan here. She is medically stable. No radiology studies performed this visit Discharge Plan Discharge Patient Disposition: Home Clinical Impression: Anxiety Condition: Stable Prescriptions: No Action lidocaine-epinephrine (PF) 2 %-1:200,000 solution 3 ml Infiltration ONCE Qty: 1 0RF povidone-iodine [Betadine Swabsticks] 10 % swab 1 applic topical ONCE Qty: 150 0RF fluoxetine 10 mg capsule PO budesonide 32 mcg/actuation aerosol intranasal [place] 0.15-0.013 mg/24 hour ring vaginal doxycycline hyclate 100 mg tablet 100 mg PO BID 21 Days Qty: 42 0RF lorazepam [Ativan] 1 mg tablet 1 mg PO Q12H PRN (Reason: anxiety) Qty: 8 0RF Discharge Orders: Discharge ED (Routine); Ordered 01/27/25 Ordered By: Denis Esquivel Referrals: Anjelica Keys FNP [Primary Care Provider, Family Practice] - 1-3 days Patient Instructions: Opioid Safety, Pain Management, Patient Portal & [facility]ra Instructions Activity Restrictions/Additional Instructions: Try the lorazepam you were prescribed at night instead of in the morning. You may find that it helps you rest. Your hydroxyzine may help more so in the morning. See your doctor next week. Return for any problems. Print Language: Salvadorean Coding Level of Care Code ED Hotel Clerk for Alyssia Mendez
== END 2025-01-27 01:59 | disposition home or self-care (01) ==
PROVIDERS: Emergency Provider Emergency Medicine; PCP Nurse Practitioner Family
DX: F41.9 Anxiety disorder, unspecified (principal)
CPT/HCPCS: 99283